=== PATIENT | male | born 1955 | race Caucasian/White ===

== ENCOUNTER → 2020-04-03 | Outpatient (CLI) | payer OTHER, SELFPAY ==
[2016-08-07 11:01] VITALS: BMI 29.7
--- NOTE | 2020-04-03 10:50 | COLBX_PTH ---
PATIENT: ALEX JUAREZ LOC: [facility] U#:[id number] AGE/SX: 64/M ROOM: RE04/03/[address]: Dr. Bhaskar Jewell MD : [id number] BED: DIS: 04/03/2020 SPEC #: [id number] RECD: 04/03/20 16:50 STATUS: DOMI REKendra #: [id number] ELLA: 04/03/20 10:[address]: Bhaskar Jewell DEPT: SURGICAL PATHOLOGY RECD BY: Shelia Garza ENTERED: 04/04/20 09:44 SP TYPE: COLON BX OTHR DR: Dr. Von Jalloh MD Tissues: Rectum, NOS Procedures: Surgery Specimen Level IV HEADER OPERATION: Colonoscopy with snare PRE-OP DIAGNOSIS: Screening colonoscopy TISSUE SUBMITTED: Rectal polyp, cold snare MICROSCOPIC DIAGNOSIS Rectal polyp, biopsy: Hyperplastic polyp. SJ:randell 04/05/20 MICROSCOPIC DESCRIPTION Slides are reviewed. GROSS DESCRIPTION Received in fixative is one container labeled with the patient's name and designated rectal polyp. The specimen consists of one irregular fragment of light hutchinson soft tissue that measures 0.2 x 0.1 x 0.1 cm. The specimen is totally submitted in one cassette. / SJ:randell 04/04/20 TC:1 CPT: 00012
== END | disposition home or self-care (01) ==
LOC: LABSPEC 16:56
PROVIDERS: PCP Internal Medicine; Referring Provider Surgery; Visit Provider Surgery
DX: Z12.11 Encounter for screening for malignant neoplasm of colon (principal)
CPT/HCPCS: 88305

== ENCOUNTER 2020-05-13 15:19 | Inpatient (IN) | payer OTHER, SELFPAY ==
[2020-05-13] VITALS (11 sets, daily range): BP systolic 107–130; BP diastolic 59–73; PULSE 80–117; RESP 16–24; TEMP 36.8–39.4; O2SAT 89–100; BMI 26.6; BMI 26.9
--- NOTE | 2020-05-13 16:12 | EKG12_ITS ---
Test Reason : FEVER Blood Pressure : / mmHG Vent. Rate : 105 BPM Atrial Rate : 105 BPM P-R Int : 170 ms QRS Dur : 068 ms QT Int : 296 ms P-R-T Axes : 029 -47 033 degrees QTc Int : 391 ms Sinus tachycardia Left axis deviation Low Voltage QRS (Limb Leads) Poor R-wave progression Inferior infarct , age undetermined , cannnot be excluded Abnormal ECG Confirmed by GATITO LI, MONIE ([id number]), scientific editor LOUISA SELBY ([id number]) on 05/16/2020 11:00:42 AM Referred By: ZITA Confirmed By:MONIE MEDEROS MD
[2020-05-13 16:24] LABS: Absolute Lymphocyte Count 1.75 X10^3/uL (0.83-4.51); Absolute Neutrophil Count 13.2 X10^3/uL (2.0-7.7); Basophil# 0.06 X10^3/uL; Basophil% 0.4 % (0-1); Eosinophil# 0.07 X10^3/uL; Eosinophils% 0.4 % (0-5); Hematocrit 49.6 % (40-54); Hemoglobin 16.5 g/dL (13.0-16.5); Lymphocyte # 1.75 X10^3/ul (4.0); Lymphocyte % 10.7 % (19-41); Mean Corp Hgb Conc 33.3 g/dL (32-36); Mean Corpuscular Hgb 30.2 pg (27.0-32.0); Mean Corpuscular Volume 90.8 fL (80-94); Mean Platelet Vol. 9.2 fl (6.2-12.0); Monocyte# 1.19 X10^3/uL; Monocyte% 7.3 % (0-10); NRBC Flagged by Analyzer 0 % (0-5); Neutrophil # 13.17 X10^3/uL (2.7-7.7); Neutrophil % 80.6 % (47-70); Platelet Count 239 K/mm3 (150-450); RBC Distribution Width CV 13.8 % (11.6-14.6); RBC Distribution Width SD 46.4 fl (35.1-43.9); Red Blood Count 5.46 M/mm3 (4.6-6.2); White Blood Count 16.3 K/mm3 (4.4-11.0)
--- NOTE | 2020-05-13 16:25 | RAD_ITS ---
STUDY: X-RAY CHEST REASON FOR EXAM: Male, 64 years old. COVID DAY 7, COUGH AND FEVER TECHNIQUE: AP COMPARISON: None. FINDINGS: Linear densities in the bilateral lung bases. No airspace consolidation. There is no demonstrated pleural abnormality. Normal size heart. Normal mediastinum and [place]. Normal visualized pulmonary arteries. Normal visualized aortic arch and descending thoracic aorta. Normal visualized thoracic spine. Normal visualized ribs, clavicles, and shoulders. There is no demonstrated abnormality of the visualized soft tissue structures of the upper abdomen. RAD/Chest 1 View (Portable) IMPRESSION: Bibasilar reticular opacities could represent atelectasis versus interstitial/atypical infectious infiltrates. Electronically Signed: Germain Ro MD (Brooks) at 16:42 EST , Service support ,
[2020-05-13 16:43] LABS: ALB/GLOB Ratio 0.7 RATIO (0.9-2.4); AST(SGOT) 31 U/L (15-37); Alanine Aminotransfer ALT/SGPT 55 U/L (16-61); Albumin, Serum 3.2 g/dL (3.2-5.0); Alkaline Phosphatase 71 U/L (45-117); Anion Gap 8 (5-15); BUN 16 mg/dL (7-18); Calcium,Total 9.1 mg/dL (8.5-10.1); Chloride 103 mmol/L (98-107); EST Glomerular Filtration Rate 80 mL/min (>60); Est Glom Filt Rate - Afr Amer 97 mL/min (>60); Globulin 4.7 g/dL (2.2-4.2); Glucose 146 mg/dL (74-106); Potassium 3.5 mmol/L (3.5-5.1); Protein, Total 7.9 g/dL (6.4-8.2); Sodium Level 137 mmol/L (136-145)
[2020-05-13 16:46] LABS: BNP,B-Type NATRIURETIC PEPTIDE 18.7 pg/mL (0-100)
[2020-05-13] MEDS: 0.9% Normal Saline 1,000 ML 200 ML IV (16:46)
[2020-05-13] MEDS: Acetaminophen 325 MG Tablet 650 MG PO (16:47)
[2020-05-13] MEDS: Ketorolac 15 MG/ML Vial IV (16:47)
--- NOTE | 2020-05-13 16:49 | ED.DCSUM_ITS ---
History of Present Illness Chief Complaint: Fever Informant: Patient Narrative: Patient is a 64-year-old male with history of hypertension and diabetes mellitus, [id number], presenting from home for persistent fever, cough and myalgias. Patient started having symptoms 1 week ago. He was diagnosed at the [facility] urgent care this week with Covid. He was taken Tylenol for symptoms. Patient states his cough has been nonproductive but yesterday was so severe that he had an episode of posttussive emesis. He has been able to eat and drink and had normal bowel movements. He denies any upper respiratory symptoms. He does not particularly feel short of breath. Because of symptoms are not improving and he continues to have fevers and feel poorly this is why he came to emergency room today. Panflu higher risk groups: Metabolic Disorders (incl. DM) Past Medical History - Allergies and Home Meds Allergies/Adverse Reactions: Allergies ranitidine [From Zantac] Allergy (Verified 05/13/20 15:20) Itching Past Medical History: - - Diabetes mellitus, hypertension Smoking Status: Current every day smoker - Family History Maternal Family History: Reports: Heart Disease Paternal Family History: Reports: Stroke Review of Systems General: Reports: Chills, Fever, Malaise. Denies: Sweats Cardiovascular: Denies: Chest pain, Palpitations Respiratory: Reports: Cough. Denies: Dyspnea, Dyspnea on exertion Gastrointestinal: Reports: Vomiting - Posttussive. Denies: Abdominal pain, Nausea, Diarrhea, Melena, Hematochezia Genitourinary: Denies: Dysuria, Hematuria, Frequency Skin: Denies: Rash Neurological: Denies: Headache, Weakness, Numbness Physical Exam Vital Signs/Narrative: Vital Signs Temp Pulse Resp BP Pulse Ox 05/13/20 15:23 102.9 F H 117 H 24 H 128/67 H 89 05/13/20 15:21 102.9 F H 117 H 24 H 128/67 H 89 Inital Vital Signs reviewed: Yes General: Well nourished, Well developed Head: Normocephalic, Atraumatic Eyes: Perrl, EOMI ENT: Moist mucous membranes, No rhinorrhea, TM's clear Neck: Supple, Nontender, No JVD Cardiovascular: Regular rhythm, No murmurs, Tachycardia Respiratory: Diminished, - - Bibasilar crackles present, more pronounced at the left base Abdomen: Soft, Nontender, Nondistended, Normal bowel sounds. Negative for: Guarding, Rebound tenderness Back: Nontender, Normal Inspection Extremities: Nontender, No edema Skin: Normal color, No rash Neurological: Alert, Oriented x3, Cranial nerves II-XII grossly intact, Normal Strength, Normal Sensation Psychological: Normal affect Diagnostic/Tx/Re-eval Chest X-Ray - ED: 1 View, Read by ED Physician, Read by Radiologist, Right Infiltrate, Left Infiltrate Laboratory Results - last 24 hr 05/13/20 05/13/20 05/13/20 15:43 15:43 15:43 WBC 16.3 H RBC 5.46 Hgb 16.5 Hct 49.6 MCV 90.8 MCH 30.2 MCHC 33.3 RDW Std Deviation 46.4 H RDW Coeff of Deanna 13.8 Plt Count 239 MPV 9.2 Immature Gran % (Auto) 0.600 Neut % (Auto) 80.6 H Lymph % (Auto) 10.7 L [place] % (Auto) 7.3 Eos % (Auto) 0.4 Baso % (Auto) 0.4 Absolute Neuts (auto) 13.2 H Absolute Lymphs (auto) 1.75 Nucleated RBC % 0 Sodium 137 Potassium 3.5 Chloride 103 Carbon Dioxide 26.0 Anion Gap 8 BUN 16 Creatinine 1.00 Estim Creat Clear Calc 74.10 Est GFR (MDRD) Af Amer 97 Est GFR (MDRD) Non-Af 80 BUN/Creatinine Ratio 16.0 Glucose 146 H Lactic Acid 2.4 H* Calcium 9.1 Total Bilirubin 0.50 AST 31 ALT 55 Alkaline Phosphatase 71 Troponin I < 0.015 B-Natriuretic Peptide Total Protein 7.9 Albumin 3.2 Globulin 4.7 H Albumin/Globulin Ratio 0.7 L 05/13/20 15:43 WBC RBC Hgb Hct MCV MCH MCHC RDW Std Deviation RDW Coeff of Deanna Plt Count MPV Immature Gran % (Auto) Neut % (Auto) Lymph % (Auto) [place] % (Auto) Eos % (Auto) Baso % (Auto) Absolute Neuts (auto) Absolute Lymphs (auto) Nucleated RBC % Sodium Potassium Chloride Carbon Dioxide Anion Gap BUN Creatinine Estim Creat Clear Calc Est GFR (MDRD) Af Amer Est GFR (MDRD) Non-Af BUN/Creatinine Ratio Glucose Lactic Acid Calcium Total Bilirubin AST ALT Alkaline Phosphatase Troponin I B-Natriuretic Peptide 18.7 Total Protein Albumin Globulin Albumin/Globulin Ratio - Rhythm Strip Rhythm Strip: Sinus Tach Rate: 105 Ectopy: None - EKG Initial EKG Interpretation: Sinus Tachycardia, - - Tachycardia at a rate of 105 Left axis deviation Normal intervals Normal ST segments Treatments: Ceftriazone Azithromycin, - - Decadron Fluid Bolus: NS 1000ml O2 Sat with ambulation (%): 87 - Medical Decision Making Patient evaluated for continued fever, myalgias and cough associated with Covid diagnosis. Patient states his symptoms started 7 days ago. In the ER patient is febrile tachycardic. He does have an O2 saturation of 92% at rest when I am in there and desaturated to 87% with ambulation. He is placed on supplementary oxygen. He is given IV fluids, Tylenol and Toradol for fever/symptom control. Chest x-ray shows bibasilar infiltrate and he has a leukocytosis of 16. Patient does meet criteria for severe sepsis with elevated lactate, source of infection (pulmonary) and tachycardia/fever. Is admitted to Covid unit for the treatment. He started on antibiotics to cover community pneumonia given his persistent fever, infiltrate and possibility of secondary bacterial infection. Is also possible that his lactic acidosis secondary to his hypoxia from viral pneumonia. He is given Decadron in the ER for this. Patient is agreeable plan of care. He stable at time of disposition. D-dimer is added on per the request of admitting physician. This will be followed by admitting physician. ED Disposition - Plan for ED Patient: Disposition: Acute Care Hospital [facility] Diagnosis: COVID-19 virus infection, Viral pneumonia, Lactic acidosis, Acute respiratory failure with hypoxia
[2020-05-13 16:53] LABS: Lactic Acid 2.4 mmol/L (0.4-1.9)
--- NOTE | 2020-05-13 17:35 | HP.PCM_ITS ---
<Nestor Waldron PA - Last Filed: 05/13/20 17:35> History of Present Illness Date of Admission: 05/13/20 Chief Complaint: fever The patient is a 64 year old M with pmhx of Dmt2 and HTN who presented to the ER with chief complaint of fever. He has felt unwell approximately 1 week. He went to [facility] about a week ago and tested positive for covid. He has had fevers daily, nonproductive cough, SOB, body aches, headaches, leg cramps, and loss of smell. He was brought to the ER and found to have leukocytosis, lactic acidosis, fever, tachycardia, tachypnea and hypoxia on room air requiring 2 lpm o2 to maintain adequate sats. He is ambulating in the room on o2 and not SOB at this time. [] Past Medical History Allergies ranitidine [From Zantac] Allergy (Verified 05/13/20 15:20) Itching Home Medications: Ambulatory Orders Medication Instructions Recorded Ibuprofen [Motrin] 400 mg PO Q6H PRN PRN 08/04/16 Lisinopril [Zestril] 5 mg PO DAILY 08/04/16 Multivitamins,Therapeutic 1 tablet PO DAILY 08/04/16 [Multivitamin] Simvastatin [Zocor] 40 mg PO QHS 08/04/16 glipiZIDE [Glucotrol] 10 mg PO DAILY@0730 08/04/16 metFORMIN HCl [Glucophage] 1,000 mg PO BIDCM 08/04/16 Aspirin [Aspirin, Baby] 81 mg PO DAILY@0800 05/13/20 Empagliflozin [Jardiance] 10 mg PO DAILY 05/13/20 Surgical History: herniorrhaphy Psychiatric History: No pertinent psych hx Lives: With Family Smoking Status: Never smoker Tobacco Use: Non-smoker Alcohol: None Drugs: None - *Family History Maternal History Items: Heart Disease Paternal History Items: Stroke Review of Systems Constitutional: Reports: Chills, Fever, Malaise, Fatigue. Denies: Weight Change HEENT: Reports: - - loss of smell. Denies: Hard of Hearing, Head Aches, Sinus Congestion, Sinus Drainage Cardiovascular: Denies: Chest Pain, Edema, Heaviness, Light Headedness, Palpitations, Syncope Respiratory: Reports: Cough, Shortness of Breath, Shortness of breath at rest, Shortness of breath upon exertion. Denies: Hemoptysis, Pleuritic Pain, Sputum production, Wheezing Gastrointestinal: Denies: Abdominal Pain, Dyspepsia, Nausea, Vomiting Genitourinary: Denies: Dysuria, Hesitancy, Urgency Musculoskeletal: Reports: Muscle pain. Denies: Joint Pain, Joint Tenderness Skin: Denies: Lesions, Rash, Wounds Neurological: Denies: Numbness, Tingling, Focal weakness Psychiatric: Denies: Anxiety, Depression, Homicidal Ideations, Suicidal Ideations Hematologic/ Lymphatic: Denies: Easy Bruising, Easy Bleeding VTE Information - Inpt Only VTE Present on Admission: No VTE Mechan Device Prophylaxis: None VTE Pharm Prophylaxis ordered?: Yes - Physical Exam Vitals/I&O's: Vital Signs Temp Pulse Resp BP Pulse Ox 99.3 F H 100 22 H 130/73 H 97 05/13/20 17:12 05/13/20 17:12 05/13/20 17:12 05/13/20 17:12 05/13/20 17:12 Oxygen Flow Rate (L/min) 2 Oxygen Delivery Method Nasal Cannula Weight: 175 lb Body Mass Index (BMI) 26.6 General: Alert, Oriented x3, Cooperative HEENT: Atraumatic, PERRLA, EOMI, Normocephalic Neck: Supple, No JVD, Negative Carotid Bruits Lungs: Clear to auscultation, Diminished Cardiovascular: Regular rate, No murmurs Abdomen: Bowel Sounds Present, Soft, Non Tender Extremities: No edema, Capillary Refill Less than 3 Seconds Skin: No rashes, No breakdown Musculoskeletal: No Tenderness to Palpation of Joints or Extremities Neurological: Cranial nerves II-XII grossly intact Psych/Mental Status: Normal Affect, Appropriate, Alert and oriented to time, place, person, mood and affect Microbiology Past 72 Hours 05/13/20 16:40 Mucosa - Nose SARS-CoV-2 Antigen (Rapid) - Final SARS-CoV-2 (COVID 19) Laboratory Results 05/13/20 15:43: WBC 16.3 H, RBC 5.46, Hgb 16.5, Hct 49.6, MCV 90.8, MCH 30.2, MCHC 33.3, RDW Std Deviation 46.4 H, RDW Coeff of Deanna 13.8, Plt Count 239, MPV 9.2, Immature Gran % (Auto) 0.600, Neut % (Auto) 80.6 H, Lymph % (Auto) 10.7 L, [place] % (Auto) 7.3, Eos % (Auto) 0.4, Baso % (Auto) 0.4, Absolute Neuts (auto) 13.2 H, Absolute Lymphs (auto) 1.75, Nucleated RBC % 0 05/13/20 15:43: Sodium 137, Potassium 3.5, Chloride 103, Carbon Dioxide 26.0, Anion Gap 8, BUN 16, Creatinine 1.00, Estim Creat Clear Calc 74.10, Est GFR (MDRD) Af Amer 97, Est GFR (MDRD) Non-Af 80, BUN/Creatinine Ratio 16.0, Glucose 146 H, Calcium 9.1, Total Bilirubin 0.50, AST 31, ALT 55, Alkaline Phosphatase 71, Troponin I < 0.015, Total Protein 7.9, Albumin 3.2, Globulin 4.7 H, Albumin/Globulin Ratio 0.7 L 05/13/20 15:43: Lactic Acid 2.4 H* 05/13/20 15:43: B-Natriuretic Peptide 18.7 05/13/20 15:43: D-Dimer Quant (PE/DVT) Pending Current Medications Dexamethasone (Dexamethasone 4 Mg Tablet) 6 mg PO DAILY DONNIE Sodium Chloride () 1,000 mls @ 200 mls/hr IV .Q5H DONNIE Last Admin: 05/13/20 16:46 Dose: 200 mls/hr Documented by: Ceftriaxone Sodium 2 gm/ (Sodium Chloride) 50 mls @ 100 mls/hr IV X1 ONE Stop: 05/13/20 17:37 Azithromycin 500 mg/ Dextrose 255 mls @ 250 mls/hr IV X1 ONE Stop: 05/13/20 18:09 Sodium Chloride () 1,000 mls @ 999 mls/hr IV .Q1H1M ONE Stop: 05/13/20 18:08 Assessment/Plan 1. Acute covid 19 with mild hypoxia - stable on 2lpm. elevated WBCs, fever tmax 102.9, tachycardia, tachypnea, lactic acidosis, 89% on room air. Repeat covid test here also positive, covid test at [facility] about a week ago positive. CXR shows bibasilar pna. [facility] start decadron and remdesevir, breathing treatments, incentive spirometer. -D dimer pending -trop and bnp neg -ekg sinus tach 2. HTN - stable 3. DMt2 - controlled with oral agents at home, here provide SSI. DVT ppx: lovenox This patient was seen by Nestor Waldron PA-C under the supervision of Dr. Milton. <Nova Milton - Last Filed: 05/13/20 18:41> History of Present Illness The patient is a 64 year old M [] Past Medical History Allergies ranitidine [From Zantac] Allergy (Verified 05/13/20 15:20) Itching - Physical Exam Vitals/I&O's: Vital Signs Temp Pulse Resp BP Pulse Ox 99.8 F H 84 20 H 107/71 100 05/13/20 17:53 05/13/20 17:53 05/13/20 17:53 05/13/20 17:53 05/13/20 17:53 Oxygen Flow Rate (L/min) 2 Oxygen Delivery Method Nasal Cannula Weight: 79.379 kg Body Mass Index (BMI) 26.6 Intake and Output for Last 24 Hours 05/11/20 05/12/20 05/13/20 23:59 23:59 23:59 Intake Total 156.67 / 156.67 Balance 156.67 / 156.67 Microbiology Past 72 Hours 05/13/20 16:40 Mucosa - Nose SARS-CoV-2 Antigen (Rapid) - Final SARS-CoV-2 (COVID 19) Laboratory Results 05/13/20 15:43: WBC 16.3 H, RBC 5.46, Hgb 16.5, Hct 49.6, MCV 90.8, MCH 30.2, MCHC 33.3, RDW Std Deviation 46.4 H, RDW Coeff of Deanna 13.8, Plt Count 239, MPV 9.2, Immature Gran % (Auto) 0.600, Neut % (Auto) 80.6 H, Lymph % (Auto) 10.7 L, [place] % (Auto) 7.3, Eos % (Auto) 0.4, Baso % (Auto) 0.4, Absolute Neuts (auto) 13.2 H, Absolute Lymphs (auto) 1.75, Nucleated RBC % 0 05/13/20 15:43: Sodium 137, Potassium 3.5, Chloride 103, Carbon Dioxide 26.0, Anion Gap 8, BUN 16, Creatinine 1.00, Estim Creat Clear Calc 74.10, Est GFR (MDRD) Af Amer 97, Est GFR (MDRD) Non-Af 80, BUN/Creatinine Ratio 16.0, Glucose 146 H, Calcium 9.1, Total Bilirubin 0.50, AST 31, ALT 55, Alkaline Phosphatase 71, Troponin I < 0.015, Total Protein 7.9, Albumin 3.2, Globulin 4.7 H, Albumin/Globulin Ratio 0.7 L 05/13/20 15:43: Lactic Acid 2.4 H* 05/13/20 15:43: B-Natriuretic Peptide 18.7 05/13/20 15:43: D-Dimer Quant (PE/DVT) 0.76 H* 05/13/20 15:43: Procalcitonin Pending Current Medications Acetaminophen (Acetaminophen 325 Mg Tablet) 650 mg PO Q6H PRN PRN PRN Reason: Pain Score 1-10/Temp > 100.7 F Al Hydroxide/Mg Hydroxide (Mag Hydrox/Al Hydrox/Simeth 30 Ml Udc) 30 ml PO Q6H PRN PRN PRN Reason: Gastric Burning Aspirin (Aspirin 81 Mg Tab.Chew) 81 mg PO DAILY@0800 [facility] Atorvastatin Calcium (Atorvastatin Calcium 20 Mg Tablet) [facility] Dexamethasone (Dexamethasone 4 Mg Tablet) 6 mg PO DAILY@0800 [facility] Empagliflozin (Empagliflozin 10 Mg Tablet) [facility] Glipizide (Glipizide 5 Mg Tablet) 10 [facility] Sodium Chloride () 1,000 mls @ 75 mls/hr IV .[id number] [facility] Stop: 05/14/20 06:57 Iopamidol (Contrast Allergy Safety Check) 0 ml IV X1 [facility] Multivitamins (Multivitamins,Therapeutic Tablet) 1 tablet PO DAILYCM [facility] Ondansetron HCl (Ondansetron 4 Mg/2 Ml Vial) 4 mg IV Q8H PRN PRN PRN Reason: NAUSEA/VOMITING Senna/Docusate Sodium (Senna/Docusate Sodium 1 Tablet) 2 tablet PO BID PRN PRN PRN Reason: Constipation Assessment/Plan This patient was seen in conjunction with RANULFO Burkett. I have independently interviewed and examined the patient and reviewed pertinent historical, laboratory, and other data. Please refer to RANULFO Burkett note for his ranulfo mares's presentation, findings, and recommendations. I have reviewed and his note and concur with his documentation 64 y/o male with PMHx of Type 2 DM, Hypertension who comes in with a week history of fever, cough, shortness of breath. Patient stated that his symptoms started from 05/06/20, he was diagnosed on 05/09/20 in the [facility] urgent care. He however has been having persistent shortness of breath, fever and cough. He admits to loss of sense of smell but no taste. Complains of generalized aches and fatigue Vitals in the ED were stable except for hypoxia 89% on room air. Temperature of 102.9F, heart rate of 117 Physical Exam: Gen: Comfortable, not pale, not jaundiced, on 2L oxygen CVS:HS I +II, regular, no murmurs RESP: Diminished at lung bases GI: BS present and normal, soft, nontender, no palpable organs EXT:No edema ASSESSMENT: 1. Acute hypoxic respiratory insufficiency secondary to COVID-19 pneumonia 2. Severe sepsis secondary to COVID-19 pneumonia 3. Elevated lactic acidosis secondary to hypoxia/Metformin use 4. Elevated D-dimer 5. Hypertension 6. Type 2 DM 7. Hyperlipidemia 8. CODE STATUS: Full code Plan: Admit to Medsurg PO Decadron, Remdesivir Will get CTA chest to rule out PE Trend lactic acid Hold lisinopril and Metformin Continue glipizide and Jardiance Blood sugar checks with insulin sliding scale I discussed and explained in details the various types of CODE STATUS-full code, DNR CCA, DNR CC. Patient chose to be full code and wants all aggressive measures in the event of a cardiopulmonary arrest. Time spent discussing CODE STATUS 16 minutes Inpatient E&M: 96937 Init Hosp L3 Procedures: 03199 Advncd Care Plan 30 Min
[2020-05-13] MEDS: dexAMETHasone 4 MG Tablet 6 MG PO (17:37)
[2020-05-13] MEDS: 0.9% Normal Saline 1,000 ML 999 ML IV (17:37)
[2020-05-13 17:55] LABS: D-Dimer Quantitative (DVT/PE) 0.76 FEU/ug/m (0.27-0.49)
--- NOTE | 2020-05-13 18:02 | CT_ITS ---
STUDY: CTA CHEST REASON FOR EXAM: Male, 64 years old. ELEVATED D-DIMER, COVID+. Hx of HTN and diabetes RADIATION DOSAGE (If Supplied By Facility): CTDIvol = ( 10.14 ) mGy, DLP = ( 471.26 ) mGycm TECHNIQUE: The examination was performed with the intravenous administration of IV 100mL Isovue-300. Post-processing of the angiographic images was performed, with multiplanar reformation and 3D reconstruction. Individualized dose optimization techniques were used for this CT. COMPARISON: None. FINDINGS: Normal enhancement of the main pulmonary artery and right and left pulmonary arteries. Normal enhancement of the bilateral peripheral pulmonary arteries. There is no demonstrated pulmonary embolism. Normal thoracic aorta and visualized great vessels. There is no demonstrated aortic dissection. Heart is mildly enlarged. Normal mediastinum. Normal hilar regions. Peripheral dominant subpleural reticular opacities and scattered groundglass opacities compatible with history provided of viral associated pneumonia. There are 2 noncalcified nodules in the right lower lobe measuring 5 mm. Normal chest wall structures. There are degenerative changes of thoracic spine. Normal visualized upper abdomen. CT/CTA Chest W/WO Contrast IMPRESSION: 1. No central or segmental pulmonary embolism. 2. Reticular and groundglass opacities and multiple pulmonary lobes with features commonly reported with COVID associated pneumonia. Electronically Signed: Germain Ro MD (Brooks) at 19:48 EST , Service support ,
[2020-05-13 18:15] LABS: Procalcitonin 0.17 ng/mL (0.00-0.09)
--- NOTE | 2020-05-13 18:54 | PCS.PANDOC ---
PANDEMIC DOCUMENTATION INITIATED: Date: 05/13/2020 Time: 1814
[2020-05-13] MEDS: 0.9% Normal Saline 1,000 ML 150 ML IV (20:11)
[2020-05-13] MEDS: Enoxaparin 30 MG/0.3 ML Syringe SC (20:12)
[2020-05-13 20:20] LABS: Reflex Lactate? Y
[2020-05-13 21:44] LABS: Lactic Acid 1.5 mmol/L (0.4-1.9)
[2020-05-14] VITALS (7 sets, daily range): BP systolic 123–138; BP diastolic 59–73; PULSE 88–95; RESP 17–19; TEMP 36.4–37.5; O2SAT 93–96
[2020-05-14 06:13] LABS: Basophil# 0.03 X10^3/uL; Basophil% 0.2 % (0-1); Hematocrit 45.5 % (40-54); Hemoglobin 14.8 g/dL (13.0-16.5); Lymphocyte % 8.6 % (19-41); Mean Corp Hgb Conc 32.5 g/dL (32-36); Mean Corpuscular Hgb 30.1 pg (27.0-32.0); Mean Corpuscular Volume 92.5 fL (80-94); Mean Platelet Vol. 9.2 fl (6.2-12.0); Monocyte# 0.62 X10^3/uL; Monocyte% 4.4 % (0-10); NRBC Flagged by Analyzer 0 % (0-5); Neutrophil # 12.01 X10^3/uL (2.7-7.7); Neutrophil % 86.2 % (47-70); Platelet Count 213 K/mm3 (150-450); RBC Distribution Width CV 13.7 % (11.6-14.6); RBC Distribution Width SD 46.8 fl (35.1-43.9); Red Blood Count 4.92 M/mm3 (4.6-6.2)
[2020-05-14 06:43] LABS: ALB/GLOB Ratio 0.6 RATIO (0.9-2.4); AST(SGOT) 25 U/L (15-37); Alanine Aminotransfer ALT/SGPT 43 U/L (16-61); Albumin, Serum 2.4 g/dL (3.2-5.0); Alkaline Phosphatase 63 U/L (45-117); Anion Gap 11 (5-15); BUN 20 mg/dL (7-18); BUN/Creat Ratio 25.6 RATIO (10-20); Calcium,Total 8.4 mg/dL (8.5-10.1); Chloride 108 mmol/L (98-107); Creatinine, Serum 0.78 mg/dL (0.70-1.30); EST Glomerular Filtration Rate 107 mL/min (>60); Est Glom Filt Rate - Afr Amer 129 mL/min (>60); Globulin 4.1 g/dL (2.2-4.2); Glucose 137 mg/dL (74-106); Potassium 4.3 mmol/L (3.5-5.1); Protein, Total 6.5 g/dL (6.4-8.2); Sodium Level 140 mmol/L (136-145)
--- NOTE | 2020-05-14 07:39 | PCM.PN.HOSP ---
Patient Problems: Active and Suspected Problems COVID-19 virus infection (Acute) Viral pneumonia (Acute) Lactic acidosis (Acute) Acute respiratory failure with hypoxia (Acute) Reason for Visit: Acute COVID-19 pneumonia Subjective: Patient is a 64-year-old gentleman admitted with a week history of fever cough and shortness of breath. An assessment of acute hypoxic respiratory sepsis secondary to COVID-19 pneumonia made admitted for subsequent inpatient management Objective: GENERAL: cooperative HEENT: Atraumatic; EYES; Anicteric, Normal Conjunctiva NECK; supple, normal thyroid, RESPIRATORY: Diminished to auscultation CARDIOVASCULAR: Regular S1 S2, GI: soft, normoactive bowel sounds, : No Renal angle tenderness; EXTREMITIES: No edema, no clubbing, MUSCULOSKELETAL: no muscle waisting NEURO: Awake; no lateralizing signs. SKIN: No Rash PSYCH; Flat affect Vitals/I&O's: Vital Signs Temp Pulse Resp BP Pulse Ox 97.6 F L 89 18 132/63 H 96 05/14/20 02:30 05/14/20 02:30 05/14/20 02:30 05/14/20 02:30 05/14/20 02:30 Oxygen Flow Rate (L/min) 1.5 Oxygen Delivery Method Nasal Cannula Weight: 80.739 kg Body Mass Index (BMI) 26.9 Intake and Output for Last 24 Hours 05/12/20 05/13/20 05/14/20 23:59 23:59 23:59 Intake Total 1831.67 / 1831.67 1480 / 1480 Balance 1831.67 / 1831.67 1480 / 1480 Microbiology Past 72 Hours 05/13/20 23:12 Mucosa - Nasopharyngeal Respiratory Panel (PCR) - Final 05/13/20 16:40 Mucosa - Nose SARS-CoV-2 Antigen (Rapid) - Final SARS-CoV-2 (COVID 19) Laboratory Results 05/13/20 15:43: WBC 16.3 H, RBC 5.46, Hgb 16.5, Hct 49.6, MCV 90.8, MCH 30.2, MCHC 33.3, RDW Std Deviation 46.4 H, RDW Coeff of Deanna 13.8, Plt Count 239, MPV 9.2, Immature Gran % (Auto) 0.600, Neut % (Auto) 80.6 H, Lymph % (Auto) 10.7 L, [place] % (Auto) 7.3, Eos % (Auto) 0.4, Baso % (Auto) 0.4, Absolute Neuts (auto) 13.2 H, Absolute Lymphs (auto) 1.75, Nucleated RBC % 0 05/13/20 15:43: Sodium 137, Potassium 3.5, Chloride 103, Carbon Dioxide 26.0, Anion Gap 8, BUN 16, Creatinine 1.00, Estim Creat Clear Calc 74.10, Est GFR (MDRD) Af Amer 97, Est GFR (MDRD) Non-Af 80, BUN/Creatinine Ratio 16.0, Glucose 146 H, Calcium 9.1, Total Bilirubin 0.50, AST 31, ALT 55, Alkaline Phosphatase 71, Troponin I < 0.015, Total Protein 7.9, Albumin 3.2, Globulin 4.7 H, Albumin/Globulin Ratio 0.7 L 05/13/20 15:43: Lactic Acid 2.4 H* 05/13/20 15:43: B-Natriuretic Peptide 18.7 05/13/20 15:43: D-Dimer Quant (PE/DVT) 0.76 H* 05/13/20 15:43: Procalcitonin 0.17 H 05/13/20 20:45: Lactic Acid 1.5 05/14/20 05:25: WBC 14.0 H, RBC 4.92, Hgb 14.8, Hct 45.5, MCV 92.5, MCH 30.1, MCHC 32.5, RDW Std Deviation 46.8 H, RDW Coeff of Deanna 13.7, Plt Count 213, MPV 9.2, Immature Gran % (Auto) 0.600, Neut % (Auto) 86.2 H, Lymph % (Auto) 8.6 L, [place] % (Auto) 4.4, Eos % (Auto) 0.0, Baso % (Auto) 0.2, Absolute Neuts (auto) 12.0 H, Absolute Lymphs (auto) 1.20, Nucleated RBC % 0 05/14/20 05:25: Sodium 140, Potassium 4.3, Chloride 108 H, Carbon Dioxide 21.0, Anion Gap 11, BUN 20 H, Creatinine 0.78, Estim Creat Clear Calc 95.00, Est GFR (MDRD) Af Amer 129, Est GFR (MDRD) Non-Af 107, BUN/Creatinine Ratio 25.6 H, Glucose 137 H, Calcium 8.4 L, Total Bilirubin 0.40, AST 25, ALT 43, Alkaline Phosphatase 63, Total Protein 6.5, Albumin 2.4 L, Globulin 4.1, Albumin/Globulin Ratio 0.6 L Current Medications Acetaminophen (Acetaminophen 325 Mg Tablet) 650 mg PO Q6H PRN PRN PRN Reason: Pain Score 1-10/Temp > 100.7 F Al Hydroxide/Mg Hydroxide (Mag Hydrox/Al Hydrox/Simeth 30 Ml Udc) 30 ml PO Q6H PRN PRN PRN Reason: Gastric Burning Albuterol Sulfate (Albuterol Sulfate 8 Gm Inhaler (60 Puffs)) 2 puff INHALATION Q4H PRN PRN PRN Reason: SOB &/OR WHEEZING Aspirin (Aspirin 81 Mg Tab.Chew) 81 mg PO DAILY [facility] Atorvastatin Calcium (Atorvastatin Calcium 20 Mg Tablet) 20 mg PO DAILY [facility] Dexamethasone (Dexamethasone 4 Mg Tablet) 6 mg PO DAILY [facility] Empagliflozin (Empagliflozin 10 Mg Tablet) 10 mg PO DAILY [facility] Enoxaparin Sodium (Enoxaparin 30 Mg/0.3 Ml Syringe) 30 mg SC BID [facility] Last Admin: 05/13/20 20:12 Dose: 30 mg Documented by: Glipizide (Glipizide 5 Mg Tablet) [facility] Remdesivir 100 mg/ Sodium (Chloride) 250 mls @ 125 mls/hr IV DAILY [facility] Stop: 05/17/20 11:59 Sodium Chloride () 250 mls @ 15 mls/hr IV .[id number] PRN PRN Reason: Saline Flush Multivitamins (Multivitamins,Therapeutic Tablet) 1 tablet PO DAILY [facility] Ondansetron HCl (Ondansetron 4 Mg/2 Ml Vial) 4 mg IV Q8H PRN PRN PRN Reason: NAUSEA/VOMITING Senna/Docusate Sodium (Senna/Docusate Sodium 1 Tablet) 2 tablet PO BID PRN PRN PRN Reason: Constipation Sodium Chloride (0.9% Saline Lock 10 Ml Syringe) 10 - 40 ml IV UD PRN PRN Reason: SALINE FLUSH Medical Necessity - Tobacco Use Smoking Status: Never smoker Tobacco Use: Chew Assessment/Plan All Active Problems COVID-19 virus infection (Acute) Viral pneumonia (Acute) Lactic acidosis (Acute) Acute respiratory failure with hypoxia (Acute) Patient is a 64-year-old gentleman admitted with a week history of fever cough and shortness of breath. An assessment of acute hypoxic respiratory sepsis secondary to COVID-19 pneumonia made admitted for subsequent inpatient management 1. Acute hypoxic respiratory insufficiency secondary to COVID-19 pneumonia -Admitted to regular nursing floor managed with systemic anticoagulation, Decadron as well as remdesivir consultation placed to infectious disease 2. Severe sepsis ?Secondary to COVID-19 pneumonia management as described above Lactic acidosis ?Due to combination of patient's Metformin use as well as his COVID-19 diagnosis with respiratory insufficiency 4. Hypertension - Blood pressure controlled, home medications continued with dose adjustment as needed 5. Dyslipidemia -Patient is on statin therapy, continued at home dose 6. Diabetes mellitus type II -patient's oral hypoglycemics held. -Placed on long acting insulin, Accu-Cheks a.c. and at bedtime and covered with sliding scale insulin 7. DVT prophylaxis ?Enoxaparin Inpatient E&M: 23667 Subs Hosp L2
[2020-05-14] MEDS: Empagliflozin 10 MG Tablet PO (08:52)
[2020-05-14] MEDS: Atorvastatin Calcium 20 MG Tablet PO (08:52)
[2020-05-14] MEDS: dexAMETHasone 4 MG Tablet 6 MG PO (08:53)
[2020-05-14] MEDS: Enoxaparin 30 MG/0.3 ML Syringe SC ×2 (08:53→21:03)
[2020-05-14] MEDS: Multivitamins,Therapeutic Tablet 1 TABLET PO (08:53)
[2020-05-14] MEDS: Aspirin 81 MG TAB.CHEW PO (08:53)
[2020-05-14] MEDS: glipiZIDE 5 MG Tablet 10 MG PO (08:53)
--- NOTE | 2020-05-14 12:54 | CASEMGMT ---
RN CM Assessment Note COVID testing: @ [facility] Chart reviewed. Patient not answering phone in room or cell phone. Patient independent, employed and no home care needs prior to admission. Presentation: fever Diagnosis: Covid 19 pneumonia PCP: Dr. Jalloh Insurance: [facility] Preferred Pharmacy: [facility] Prescription Benefit: yes LNOK: , Citlalli Eric Living Arrangements: Pt lives independently in two story home with his . Pt works and does not have care needs. Tranportation: drives DME: none. if home oxygen is needed, [facility] providers for [facility] are: [facility] in [place], [employer], Patient DC Goals: Home DC Plan: anticipate home on discharge. No therapies needed at this time per PT/OT. CM available for discharge planning coordination. Contact CM for any concerns/needs that may arise. Yanique ARREOLA RN ACM
--- NOTE | 2020-05-14 15:01 | CON.PCM_ITS ---
Problem List (1) COVID-19 virus infection Status: Acute Reason for Consult: covid Consulted by: Dr. Valles History of Present Illness: The patient is a 64 year old M presented with sx starting 05/06, c/o fever, chills, loss of smell, headache, aches, fatigue. Had progressive cough and dyspnea. is also (+), improving. Came to ED, admitted on dex, lovenox 30mg bid, remdesivir, feeling better today. Full ROS performed and neg except as noted above. - Medical History Allergies/Adverse Reactions: Allergies ranitidine [From Zantac] Allergy (Verified 05/13/20 15:20) Itching Home Medications: Ambulatory Orders Medication Instructions Recorded Ibuprofen [Motrin] 400 mg PO Q6H PRN PRN 08/04/16 Lisinopril [Zestril] 5 mg PO DAILY 08/04/16 Multivitamins,Therapeutic 1 tablet PO DAILY 08/04/16 [Multivitamin] Simvastatin [Zocor] 40 mg PO QHS 08/04/16 glipiZIDE [Glucotrol] 10 mg PO DAILY@0730 08/04/16 metFORMIN HCl [Glucophage] 1,000 mg PO BIDCM 08/04/16 Aspirin [Aspirin, Baby] 81 mg PO DAILY@0800 05/13/20 Empagliflozin [Jardiance] 10 mg PO DAILY 05/13/20 - Social History SMOKING STATUS:: Never smoker Vital Signs Temp Pulse Resp BP Pulse Ox 99.4 F H 95 19 H 126/59 H 96 05/14/20 08:30 05/14/20 08:30 05/14/20 08:30 05/14/20 08:30 05/14/20 11:56 Oxygen Flow Rate (L/min) 2 Oxygen Delivery Method Nasal Cannula Weight: 80.739 kg Body Mass Index (BMI) 26.9 Microbiology Past 72 Hours 05/13/20 23:12 Respiratory Panel (PCR) - Final Mucosa - Nasopharyngeal 05/13/20 16:40 SARS-CoV-2 Antigen (Rapid) - Final Mucosa - Nose SARS-CoV-2 (COVID 19) Laboratory Tests Past 24 Hrs 05/13/20 05/13/20 05/13/20 15:43 15:43 15:43 WBC 16.3 H RBC 5.46 Hgb 16.5 Hct 49.6 MCV 90.8 MCH 30.2 MCHC 33.3 RDW Std Deviation 46.4 H RDW Coeff of Deanna 13.8 Plt Count 239 MPV 9.2 Immature Gran % (Auto) 0.600 Neut % (Auto) 80.6 H Lymph % (Auto) 10.7 L [place] % (Auto) 7.3 Eos % (Auto) 0.4 Baso % (Auto) 0.4 Absolute Neuts (auto) 13.2 H Absolute Lymphs (auto) 1.75 Nucleated RBC % 0 D-Dimer Quant (PE/DVT) Sodium 137 Potassium 3.5 Chloride 103 Carbon Dioxide 26.0 Anion Gap 8 BUN 16 Creatinine 1.00 Estim Creat Clear Calc 74.10 Est GFR (MDRD) Af Amer 97 Est GFR (MDRD) Non-Af 80 BUN/Creatinine Ratio 16.0 Glucose 146 H Lactic Acid 2.4 H* Calcium 9.1 Total Bilirubin 0.50 AST 31 ALT 55 Alkaline Phosphatase 71 Troponin I < 0.015 B-Natriuretic Peptide Total Protein 7.9 Albumin 3.2 Globulin 4.7 H Albumin/Globulin Ratio 0.7 L Procalcitonin 05/13/20 05/13/20 05/13/20 15:43 15:43 15:43 WBC RBC Hgb Hct MCV MCH MCHC RDW Std Deviation RDW Coeff of Deanna Plt Count MPV Immature Gran % (Auto) Neut % (Auto) Lymph % (Auto) [place] % (Auto) Eos % (Auto) Baso % (Auto) Absolute Neuts (auto) Absolute Lymphs (auto) Nucleated RBC % D-Dimer Quant (PE/DVT) 0.76 H* Sodium Potassium Chloride Carbon Dioxide Anion Gap BUN Creatinine Estim Creat Clear Calc Est GFR (MDRD) Af Amer Est GFR (MDRD) Non-Af BUN/Creatinine Ratio Glucose Lactic Acid Calcium Total Bilirubin AST ALT Alkaline Phosphatase Troponin I B-Natriuretic Peptide 18.7 Total Protein Albumin Globulin Albumin/Globulin Ratio Procalcitonin 0.17 H 05/13/20 05/14/20 05/14/20 20:45 05:25 05:25 WBC 14.0 H RBC 4.92 Hgb 14.8 Hct 45.5 MCV 92.5 MCH 30.1 MCHC 32.5 RDW Std Deviation 46.8 H RDW Coeff of Deanna 13.7 Plt Count 213 MPV 9.2 Immature Gran % (Auto) 0.600 Neut % (Auto) 86.2 H Lymph % (Auto) 8.6 L [place] % (Auto) 4.4 Eos % (Auto) 0.0 Baso % (Auto) 0.2 Absolute Neuts (auto) 12.0 H Absolute Lymphs (auto) 1.20 Nucleated RBC % 0 D-Dimer Quant (PE/DVT) Sodium 140 Potassium 4.3 Chloride 108 H Carbon Dioxide 21.0 Anion Gap 11 BUN 20 H Creatinine 0.78 Estim Creat Clear Calc 95.00 Est GFR (MDRD) Af Amer 129 Est GFR (MDRD) Non-Af 107 BUN/Creatinine Ratio 25.6 H Glucose 137 H Lactic Acid 1.5 Calcium 8.4 L Total Bilirubin 0.40 AST 25 ALT 43 Alkaline Phosphatase 63 Troponin I B-Natriuretic Peptide Total Protein 6.5 Albumin 2.4 L Globulin 4.1 Albumin/Globulin Ratio 0.6 L Procalcitonin - Other Studies Radiology: [] reviewed Other Studies: [] Route of nutrition/ use of supplements: [] Nutritional Intake: [] IV Site: [] Zavala Catheter: [] - Physical Exam General: Alert, Oriented x3, Cooperative, No apparent distress HEENT: Atraumatic, PERRLA, EOMI Neck: Supple, No Nodes Lungs: Diminished Cardiovascular: Regular rate, Regular Rhythm Abdomen: Soft, Non Tender, Non-Distended Extremities: No edema Skin: No rashes Musculoskeletal: No Tenderness to Palpation of Joints or Extremities Neurological: Cranial nerves II-XII grossly intact - Assessment/Plan Antibiotics: [] Assessment/Plan: [] Active and Suspected Problems COVID-19 virus infection (Acute) Viral pneumonia (Acute) Lactic acidosis (Acute) Acute respiratory failure with hypoxia (Acute) covid with hypoxia - sx started 05/06. also (+). On dex, lovenox 30mg bid, and remdesivir. Will check LFT with AM labs. D-dimer mildly elevated. On 2L O2. Plan on d/c home with 20 days of quarantine from 05/06, 10 days of dex, 2 weeks of either xarelto 10mg daily or eliquis 2.5mg bid. Will follow, thank you
[2020-05-14] MEDS: Acetaminophen 325 MG Tablet 650 MG PO (21:46)
[2020-05-15 03:00] VITALS: BP 110/60; PULSE 70; RESP 18; TEMP 36.9; O2SAT 95
[2020-05-15 05:00] VITALS: RESP 18
[2020-05-15 05:26] LABS: Hematocrit 47.9 % (40-54); Hemoglobin 15.5 g/dL (13.0-16.5); Mean Corp Hgb Conc 32.4 g/dL (32-36); Mean Corpuscular Hgb 29.5 pg (27.0-32.0); Mean Corpuscular Volume 91.2 fL (80-94); Mean Platelet Vol. 8.9 fl (6.2-12.0); Platelet Count 320 K/mm3 (150-450); Red Blood Count 5.25 M/mm3 (4.6-6.2)
[2020-05-15 05:55] LABS: AST(SGOT) 31 U/L (15-37); Alanine Aminotransfer ALT/SGPT 49 U/L (16-61); Albumin, Serum 2.9 g/dL (3.2-5.0); Alkaline Phosphatase 67 U/L (45-117); Anion Gap 11 (5-15); BUN 26 mg/dL (7-18); BUN/Creat Ratio 26.1 RATIO (10-20); Bilirubin, Direct 0.14 mg/dL (0.00-0.30); Calcium,Total 8.5 mg/dL (8.5-10.1); Chloride 107 mmol/L (98-107); EST Glomerular Filtration Rate 81 mL/min (>60); Est Glom Filt Rate - Afr Amer 98 mL/min (>60); Globulin 3.8 g/dL (2.2-4.2); Glucose 141 mg/dL (74-106); Magnesium 2.4 mg/dL (1.6-2.6); Potassium 3.7 mmol/L (3.5-5.1); Protein, Total 6.7 g/dL (6.4-8.2); Sodium Level 140 mmol/L (136-145)
--- NOTE | 2020-05-15 07:39 | DCINST_ITS ---
- Discharge Diagnoses Current Active Problems: Current Active and Chronic Problems COVID-19 virus infection (Acute) Viral pneumonia (Acute) Lactic acidosis (Acute) Acute respiratory failure with hypoxia (Acute) You will use the following diet at home:: No restrictions Discharge Activity: Return to Normal Activity, - - Patient to current time for total of 21 days Allergies/Adverse Reactions: Allergies ranitidine [From Zantac] Allergy (Verified 05/13/20 15:20) Itching Medications to take at Discharge Ibuprofen [Motrin] 400 mg PO Q6H PRN PRN 08/04/16 Lisinopril [Zestril] 5 mg PO DAILY 08/04/16 Multivitamins,Therapeutic [Multivitamin] 1 tablet PO DAILY 08/04/16 Simvastatin [Zocor] 40 mg PO QHS 08/04/16 glipiZIDE [Glucotrol] 10 mg PO DAILY@0730 08/04/16 metFORMIN HCl [Glucophage] 1,000 mg PO BIDCM 08/04/16 Aspirin [Aspirin, Baby] 81 mg PO DAILY@0800 05/13/20 Empagliflozin [Jardiance] 10 mg PO DAILY 05/13/20 Acetaminophen [Tylenol Tablet] 650 mg PO Q6H PRN PRN tab 05/15/20 Dexamethasone [Decadron] 6 mg PO DAILY 7 Days #7 tab 05/15/20 Rivaroxaban [Xarelto] 10 mg PO DAILY #14 tab 05/15/20 The following prescriptions were given: Dexamethasone [Decadron] 6 mg PO DAILY 7 Days #7 tab Transmission Status: Received by [facility]/pharmacy #[id number] Rivaroxaban [Xarelto] 10 mg PO DAILY #14 tab Transmission Status: Received by [facility]/pharmacy #[id number] Primary Care Physician: Von Jalloh MD [Primary Care Provider] - Please follow up with your Primary Care Physician in: Call for follow-up appointment following end of current time Test Results: Test results from this visit will be discussed in further detail at your follow- up appointment, if applicable. Proposed Discharge Date: 05/15/20
[2020-05-15 08:44] VITALS: O2SAT 88; O2SAT 92; O2SAT 93
[2020-05-15] MEDS: Enoxaparin 30 MG/0.3 ML Syringe SC (08:44)
[2020-05-15] MEDS: dexAMETHasone 4 MG Tablet 6 MG PO (08:45)
[2020-05-15] MEDS: Multivitamins,Therapeutic Tablet 1 TABLET PO (08:46)
[2020-05-15] MEDS: glipiZIDE 5 MG Tablet 10 MG PO (08:46)
[2020-05-15] MEDS: Aspirin 81 MG TAB.CHEW PO (08:47)
[2020-05-15] MEDS: Empagliflozin 10 MG Tablet PO (08:47)
[2020-05-15] MEDS: Atorvastatin Calcium 20 MG Tablet PO (08:47)
[2020-05-15 08:51] VITALS: BP 127/63; PULSE 67; RESP 20; TEMP 36.9; O2SAT 93
--- NOTE | 2020-05-15 09:57 | CASEMGMT ---
MELINDA VELOZ Note: Per Dr. Valles, plan is for discharge today. Pt will need Home Oxygen testing prior. MELINDA VELOZ called into room, intro role of CM to patient and reviewed list of [facility] providers including [facility] being affiliated /hospital. Pt does not have preference and is agreeable to use [facility]. Reviewed that if oxygen is needed-portable tank would be brought to the hospital and patient would need to contact number given when home to have remaining oxygen supplies delivered. Pt understands. No concerns re: dc and no care needs on dc identified. Yanique PAULN RN ACM
--- NOTE | 2020-05-15 10:25 | PCM.DC.SUM ---
Discharge Date and Diagnosis - Problem List Patient Problems: Active and Suspected Problems COVID-19 virus infection (Acute) Viral pneumonia (Acute) Lactic acidosis (Acute) Acute respiratory failure with hypoxia (Acute) Date of Admission: 05/13/20 Date of Discharge: 05/15/20 - Primary Discharge Diagnosis Acute Problems: Active Problems COVID-19 virus infection (Acute) Viral pneumonia (Acute) Lactic acidosis (Acute) Acute respiratory failure with hypoxia (Acute) Hospital Course and Treatment Summary of Care Provided: Patient is a 64-year-old gentleman admitted with a week history of fever cough and shortness of breath. An assessment of acute hypoxic respiratory sepsis secondary to COVID-19 pneumonia made admitted for subsequent inpatient management 1. Acute hypoxic respiratory insufficiency secondary to COVID-19 pneumonia -Admitted to regular nursing floor managed with systemic anticoagulation, Decadron as well as remdesivir consultation placed to infectious disease -05/15/2020; patient was deemed stable for discharge. He was discharged home with Decadron to complete a 10-day course. Prescription was also written for Xarelto 10 mg p.o. daily for 2 weeks. Patient was also assessed for home oxygen which he did qualify. He will need portability since he is active both at home as well as in the community. 2. Severe sepsis ?Secondary to COVID-19 pneumonia management as described above Lactic acidosis ?Due to combination of patient's Metformin use as well as his COVID-19 diagnosis with respiratory insufficiency 4. Hypertension - Blood pressure controlled, home medications continued with dose adjustment as needed 5. Dyslipidemia -Patient is on statin therapy, continued at home dose 6. Diabetes mellitus type II -patient's oral hypoglycemics held. -Placed on long acting insulin, Accu-Cheks a.c. and at bedtime and covered with sliding scale insulin 7. DVT prophylaxis ?Enoxaparin Patient Problems: Active and Suspected Problems COVID-19 virus infection (Acute) Viral pneumonia (Acute) Lactic acidosis (Acute) Acute respiratory failure with hypoxia (Acute) Objective: GENERAL: cooperative HEENT: Atraumatic; EYES; Anicteric, Normal Conjunctiva NECK; supple, normal thyroid, RESPIRATORY: Diminished to auscultation CARDIOVASCULAR: Regular S1 S2, GI: soft, normoactive bowel sounds, : No Renal angle tenderness; EXTREMITIES: No edema, no clubbing, MUSCULOSKELETAL: no muscle waisting NEURO: Awake; no lateralizing signs. SKIN: No Rash - Physical Exam Vitals/I&O's: Vital Signs Temp Pulse Resp BP Pulse Ox 98.5 F 67 20 H 127/63 H 93 05/15/20 08:51 05/15/20 08:51 05/15/20 08:51 05/15/20 08:51 05/15/20 08:51 Oxygen Flow Rate (L/min) [ 2 AMBULATION with Oxygen] Oxygen Flow Rate (L/min) [ 0 AMBULATING on Room Air] Oxygen Flow Rate (L/min) [At 0 REST on Room Air] Oxygen Flow Rate (L/min) 2 Oxygen Delivery Method Nasal Cannula Weight: 81.193 kg Body Mass Index (BMI) 26.9 Intake and Output for Last 24 Hours 05/13/20 05/14/20 05/15/20 23:59 23:59 23:59 Intake Total 1831.67 / 1831.67 2290 / 2290 500 / 500 Balance 1831.67 / 1831.67 2290 / 2290 500 / 500 Microbiology Past 72 Hours 05/13/20 23:12 Mucosa - Nasopharyngeal Respiratory Panel (PCR) - Final 05/13/20 16:40 Mucosa - Nose SARS-CoV-2 Antigen (Rapid) - Final SARS-CoV-2 (COVID 19) Laboratory Results 05/15/20 05:20: WBC 19.0 H, RBC 5.25, Hgb 15.5, Hct 47.9, MCV 91.2, MCH 29.5, MCHC 32.4, RDW Std Deviation 47.0 H, RDW Coeff of Deanna 14.0, Plt Count 320, MPV 8.9 05/15/20 05:20: Sodium 140, Potassium 3.7, Chloride 107, Carbon Dioxide 22.0, Anion Gap 11, BUN 26 H, Creatinine 1.00, Estim Creat Clear Calc 74.10, Est GFR (MDRD) Af Amer 98, Est GFR (MDRD) Non-Af 81, BUN/Creatinine Ratio 26.1 H, Glucose 141 H, Calcium 8.5, Magnesium 2.4, Total Bilirubin 0.50, Direct Bilirubin 0.14, AST 31, ALT 49, Alkaline Phosphatase 67, Total Protein 6.7, Albumin 2.9 L, Globulin 3.8 Current Medications Acetaminophen (Acetaminophen 325 Mg Tablet) 650 mg PO Q6H PRN PRN PRN Reason: Pain Score 1-10/Temp > 100.7 F Last Admin: 05/14/20 21:46 Dose: 650 mg Documented by: Al Hydroxide/Mg Hydroxide (Mag Hydrox/Al Hydrox/Simeth 30 Ml Udc) 30 ml PO Q6H PRN PRN PRN Reason: Gastric Burning Albuterol Sulfate (Albuterol Sulfate 18 Gm Inhaler (200 Puffs)) 2 puff IH Q4H PRN PRN PRN Reason: SOB &/OR WHEEZING Last Admin: 05/15/20 06:01 Dose: 2 puff Documented by: Aspirin (Aspirin 81 Mg Tab.Chew) 81 mg PO DAILY [facility] Last Admin: 05/15/20 08:47 Dose: 81 mg Documented by: Atorvastatin Calcium (Atorvastatin Calcium 20 Mg Tablet) 20 mg PO DAILY [facility] Last Admin: 05/15/20 08:47 Dose: 20 mg Documented by: Dexamethasone (Dexamethasone 4 Mg Tablet) 6 mg PO DAILY [facility] Last Admin: 05/15/20 08:45 Dose: 6 mg Documented by: Empagliflozin (Empagliflozin 10 Mg Tablet) 10 mg PO DAILY [facility] Last Admin: 05/15/20 08:47 Dose: 10 mg Documented by: Enoxaparin Sodium (Enoxaparin 30 Mg/0.3 Ml Syringe) 30 mg SC BID [facility] Last Admin: 05/15/20 08:44 Dose: 30 mg Documented by: [facility] ([facility] Mg [facility]) [facility] Last Admin: 05/15/20 08:46 Dose: 10 mg Documented by: Remdesivir 100 mg/ Sodium (Chloride) 250 mls @ 125 mls/hr IV DAILY [facility] Stop: 05/17/20 11:59 Last Admin: 05/15/20 10:11 Dose: 125 mls/hr Documented by: Sodium Chloride () 250 mls @ 15 mls/hr IV .[id number] PRN PRN Reason: Saline Flush Miscellaneous Information (Inhaler, Assist Devices 1 Each Spacer) 1 each INHALATION PRN PRN PRN Reason: WITH ALBUTEROL INHALER Multivitamins (Multivitamins,Therapeutic Tablet) 1 tablet PO DAILY [facility] Last Admin: 05/15/20 08:46 Dose: 1 tablet Documented by: Ondansetron HCl (Ondansetron 4 Mg/2 Ml Vial) 4 mg IV Q8H PRN PRN PRN Reason: NAUSEA/VOMITING Senna/Docusate Sodium (Senna/Docusate Sodium 1 Tablet) 2 tablet PO BID PRN PRN PRN Reason: Constipation Sodium Chloride (0.9% Saline Lock 10 Ml Syringe) 10 - 40 ml IV UD PRN PRN Reason: SALINE FLUSH Discharge Diet: No Restrictions Discharge Activity: Return to Normal Activity, - - Patient to current time for total of 21 days Home Medications: Medications to take at Discharge Ibuprofen [Motrin] 400 mg PO Q6H PRN PRN 08/04/16 Lisinopril [Zestril] 5 mg PO DAILY 08/04/16 Multivitamins,Therapeutic [Multivitamin] 1 tablet PO DAILY 08/04/16 Simvastatin [Zocor] 40 mg PO QHS 08/04/16 glipiZIDE [Glucotrol] 10 mg PO DAILY@0730 08/04/16 metFORMIN HCl [Glucophage] 1,000 mg PO BIDCM 08/04/16 Aspirin [Aspirin, Baby] 81 mg PO DAILY@0800 05/13/20 Empagliflozin [Jardiance] 10 mg PO DAILY 05/13/20 Acetaminophen [Tylenol Tablet] 650 mg PO Q6H PRN PRN tab 05/15/20 Dexamethasone [Decadron] 6 mg PO DAILY 7 Days #7 tab 05/15/20 Rivaroxaban [Xarelto] 10 mg PO DAILY #14 tab 05/15/20 Following Prescriptions Were Given to Patient: Dexamethasone [Decadron] 6 mg PO DAILY 7 Days #7 tab Transmission Status: Received by [facility]/pharmacy #[id number] Rivaroxaban [Xarelto] 10 mg PO DAILY #14 tab Transmission Status: Received by [facility]/pharmacy #[id number] Primary Care Physician: Von Jalloh MD [Primary Care Provider] - Please follow up with your Primary Care Physician in: Call for follow-up appointment following end of current time Disposition: Home Minutes spent on discharge:: 35 Patient Condition:: Stable Medical Necessity - Tobacco Use Smoking Status: Never smoker Tobacco Use: Chew Meaningful Use Info Meaningful Use Diagnoses (Choose all that apply): None applicable Inpatient E&M: 31544 [facility] Hosp
== END 2020-05-15 15:13 | disposition home or self-care (01) | DRG 871 ==
LOC: ED 16:11 → MS2 20:46
PROVIDERS: Admitting Provider Internal Medicine; Emergency Provider Emergency Medicine; PCP Internal Medicine; Visit Provider Internal Medicine
DX: A41.89 Other specified sepsis (principal); U07.1 COVID-19; J12.82 Pneumonia due to coronavirus disease 2019; E87.2 Acidosis; R65.20 Severe sepsis without septic shock; I10 Essential (primary) hypertension; E78.5 Hyperlipidemia, unspecified; E11.9 Type 2 diabetes mellitus without complications; F17.200 Nicotine dependence, unspecified, uncomplicated; Z79.84 Long term (current) use of oral hypoglycemic drugs; Z79.899 Other long term (current) drug therapy; R09.02 Hypoxemia; R06.89 Other abnormalities of breathing
CPT/HCPCS: 36415; 71045; 71275; 80048; 80053; 80076; 83605; 83735; 83880; 84145; 84484; 85025; 85027; 85379; 87040; 87426; 87633; 93005; 97161; 97166; 97802; 99251; 99285; 99406; J7030; J7050; Q9967; A4216; G0463; J0696

== ENCOUNTER → 2024-04-28 | Outpatient (CLI) | payer OTHER, SELFPAY ==
--- NOTE | 2024-04-28 09:32 | VDLE_ITS ---
Reason For Study: Right leg swellig RIGHT LEFT GSV is normal. CFV is compressible, spontaneous, phasic, CFV is compressible, spontaneous, phasic, competent, and demonstrates normal competent and demonstrates normal augmentation. augmentation. FV is compressible, spontaneous, phasic, competent and demonstrates normal augmentation. POP V is compressible, spontaneous, phasic, competent and demonstrates normal augmentation. T/P Trunk is compressible. PTV is compressible. RT PerV is compressible. Procedure This is a venous duplex using B-mode, color flow and spectral Doppler. Exam performed in department. A preliminary report was called and/or faxed to Dr. Mays. VL/Venous Duplex US, Unilateral Interpretation Summary Deep veins of the right lower extremity are patent and compressible segmentally . There is no evidence of right lower extremity deep vein thrombosis. Valvular competence ama ears intact within the proximal deep venous system on the right . The right great saphenous vein a ppears patent and compressible segmentally. The left common femoral vein is patent and compressib le . Ordering Physician: Yelena Mays Referring Physician: Von Jalloh M.D. Performed By: Marina James RVT
== END | disposition home or self-care (01) ==
PROVIDERS: PCP Internal Medicine; Referring Provider Podiatrist; Visit Provider Podiatrist
DX: M79.604 Pain in right leg (principal); R60.9 Edema, unspecified
CPT/HCPCS: 93971